=== PATIENT | female | born 1945 | race Caucasian/White ===

== ENCOUNTER 2024-01-24 11:03 | Emergency (ER) | payer MEDICARE, BC ==
[~2024-01-24] VITALS: Ht 152.4 cm; Wt 59.0 kg
[~2024-01-24 11:03] MED LIST: CYCLOBENZAPRINE10 MG PO; NORCO 5-325 TA1 EACH PO
[2024-01-24 11:37] LABS: BASO # 0.1 10*3/uL (0.0-0.1); BASO % 1.9 % (0.0-1.0); EOS # 0.3 10*3/uL (0.0-0.4); HEMATOCRIT 41.2 % (37.0-47.0); LYMPH # 3.3 10*3/uL (1.3-4.4); LYMPH % 50.8 % (27.0-41.0); MEAN CELL VOLUME 101.7 fl (81.0-99.0); MEAN CORPUSCULAR HGB 30.6 pg (27.0-31.0); MEAN CORPUSCULAR HGB CONC 30.1 g/dl (33.0-37.0); MEAN PLATELET VOLUME 9.7 fl (9.6-12.3); MONO # 1.1 10*3/uL (0.1-1.0); MONO % 16.5 % (3.0-9.0); NEUT # 1.7 10*3/uL (2.3-7.9); NEUT % 26.5 % (47.0-73.0); PLATELET COUNT AUTOMATED 340 10*3/uL (130-400); RED BLOOD COUNT 4.05 10*6/uL (4.10-5.10); RED CELL DISTRI WIDTH 13.8 % (0-14.5); WHITE BLOOD COUNT 6.4 10*3/uL (4.8-10.8)
[2024-01-24 14:57] LABS: BILIRUBIN 2+ (Negative); CLARITY Clear (Clear); COLOR Orange (Yellow); GLUCOSE Negative (Negative); KETONE Negative (Negative); LEUKO ESTERASE 2+ (Negative); NITRITE Positive (Negative)
[2024-01-24 15:19] LABS: BACTERIA 1+
[2024-01-24 15:20] LABS: BLOOD Trace-Lysed (Negative)
[2024-01-24] MEDS ORDERED: CIPRO500 MG PO (16:12)
[2024-01-24] MEDS ORDERED: Ciprofloxacin Hydrochloride 500 MG TAB PO ONE (16:15)
[2024-01-28] MEDS ORDERED: PANTOPRAZOLE SO40 MG PO (00:56)
[2024-01-28] MEDS ORDERED: BUMETANIDE1 MG PO (00:57)
[2024-01-28] MEDS ORDERED: ALLOPURINOL100 MG PO (00:57)
[2024-01-28] MEDS ORDERED: CARVEDILOL25 MG PO (00:58)
[2024-01-28] MEDS ORDERED: ENTRESTO 24 MG1 EACH PO (00:58)
[2024-01-28] MEDS ORDERED: HYDROCODONE-AC1 EACH PO (00:59)
[2024-01-28] MEDS ORDERED: MORPHINE SULFAT30 M9 PO (00:59)
[2024-01-28] MEDS ORDERED: FLUTICASONE PRO12 G2 INH (01:00)
[2024-01-28] MEDS ORDERED: Ipratropium Brom3 ML INH (01:00)
[2024-01-28] MEDS ORDERED: AZO BLADDER CO300 MG PO (01:02)
[2024-02-01] MEDS ORDERED: ELIQUIS5 M1 PO (11:18)
[2024-02-01] MEDS ORDERED: MUCUS RELIEF E600 MG PO (11:18)
[2024-02-01] MEDS ORDERED: ROPINIROLE HYDRO1 MG PO (11:18)
[2024-02-01] MEDS ORDERED: PREDNISONE10 MG PO (11:18)
[2024-02-01] MEDS ORDERED: LEVOFLOXACIN250 M2 PO (11:21)
== END 2024-01-24 16:28 | disposition home or self-care (01) ==
LOC: ED 11:03
PROVIDERS: Nurse Practitioner Family
DX: N39.0 Urinary tract infection, site not specified (principal); R07.89 Other chest pain; J44.9 Chronic obstructive pulmonary disease, unspecified; I50.9 Heart failure, unspecified; K21.9 Gastro-esophageal reflux disease without esophagitis; D64.9 Anemia, unspecified; F17.290 Nicotine dependence, other tobacco product, uncomplicated; Z88.0 Allergy status to penicillin; Z88.2 Allergy status to sulfonamides; Z88.1 Allergy status to other antibiotic agents; Z88.8 Allergy status to other drugs, medicaments and biological substances; Z98.890 Other specified postprocedural states

== ENCOUNTER 2024-03-13 09:16 | Emergency (ER) | payer MEDICARE, BC ==
[~2024-03-13] VITALS: Ht 152.4 cm; Wt 63.5 kg
[~2024-03-13 09:16] MED LIST changes: +ALDACTONE25 MG PO; +ALLOPURINOL100 MG PO; +AZO BLADDER CO300 MG PO; +BUMETANIDE1 MG PO; +CARVEDILOL25 MG PO; +CIPRO500 MG PO; +ELIQUIS5 M1 PO; +ENTRESTO 24 MG1 EACH PO; +FLUTICASONE PRO12 G2 INH; +HYDROCODONE-AC1 EACH PO; +Ipratropium Brom3 ML INH; +JARDIANCE10 MG PO; +LEVOFLOXACIN250 M2 PO; +MORPHINE SULFAT30 M9 PO; +MUCUS RELIEF E600 MG PO; +PANTOPRAZOLE SO40 MG PO; +PREDNISONE10 MG PO; +ROPINIROLE HYDRO1 MG PO
[2024-03-13] MEDS ORDERED: TRIAMCINOLONE ACETONIDE 40 MG/ML VIAL IM ONE (09:30)
== END 2024-03-13 12:55 | disposition home or self-care (01) ==
LOC: ED 09:16
DX: G89.29 Other chronic pain (principal); M54.50 Low back pain, unspecified; M19.90 Unspecified osteoarthritis, unspecified site; R91.1 Solitary pulmonary nodule; J44.9 Chronic obstructive pulmonary disease, unspecified; I50.9 Heart failure, unspecified; K21.9 Gastro-esophageal reflux disease without esophagitis; D46.9 Myelodysplastic syndrome, unspecified; Z87.442 Personal history of urinary calculi; F17.210 Nicotine dependence, cigarettes, uncomplicated; Z88.0 Allergy status to penicillin; Z88.2 Allergy status to sulfonamides; Z88.1 Allergy status to other antibiotic agents; Z88.8 Allergy status to other drugs, medicaments and biological substances; Z98.890 Other specified postprocedural states; Z96.653 Presence of artificial knee joint, bilateral

== ENCOUNTER 2024-05-03 14:25 | Observation (INO) | payer MEDICARE, BC ==
[~2024-05-03] VITALS: Ht 152.4 cm; Wt 57.7 kg
[2024-05-03] VITALS (12 sets, daily range): BP systolic 104–134; BP diastolic 45–60
[2024-05-03] MEDS ORDERED: AMITRIPTYLINE25 MG PO (14:35)
[2024-05-03] MEDS ORDERED: METOPROLOL SUCC50 M1 PO (14:36)
[2024-05-03] MEDS ORDERED: ASPIRIN ADULT L81 M2 PO (14:36)
[2024-05-03 15:02] LABS: BASO # 0.1 10*3/uL (0.0-0.1); BASO % 0.7 % (0.0-1.0); EOS % 0.1 % (1.0-4.0); HEMATOCRIT 27.4 % (37.0-47.0); MEAN CELL VOLUME 92.9 fl (81.0-99.0); MEAN CORPUSCULAR HGB 26.8 pg (27.0-31.0); MEAN CORPUSCULAR HGB CONC 28.8 g/dl (33.0-37.0); MEAN PLATELET VOLUME 9.2 fl (9.6-12.3); MONO # 0.9 10*3/uL (0.1-1.0); NEUT # 7.5 10*3/uL (2.3-7.9); NEUT % 72.3 % (47.0-73.0); NUCLEATED RED BLOOD CELL 0.3 % (0.0-0.0); PLATELET COUNT AUTOMATED 558 10*3/uL (130-400); RED BLOOD COUNT 2.95 10*6/uL (4.10-5.10); RED CELL DISTRI WIDTH 18.6 % (0-14.5); WHITE BLOOD COUNT 10.3 10*3/uL (4.8-10.8)
[2024-05-03 15:13] LABS: ACT PARTIAL THROMBO TIME 24.9 SECONDS (20.0-32.1)
[2024-05-03 15:23] LABS: ALKALINE PHOSPHATASE 273 U/L (46-116); BUN 12 mg/dl (9-23); CHLORIDE 105 mmol/L (98-107); POTASSIUM 3.9 mmol/L (3.4-5.1); SGPT/ALT < 7 U/L (5-49); TOTAL PROTEIN 5.3 gm/dL (6.0-8.0)
[2024-05-03] MEDS ORDERED: Ondansetron Hydrochloride 4 MG/2 ML VIAL IV PRN (18:00)
[2024-05-03] MEDS ORDERED: MORPHINE Sulfate 2 MG/ML SYR IV PRN (18:00)
[2024-05-03] MEDS ORDERED: MAGNESIUM SULFATE 50 ML IV ONE (18:05)
[2024-05-03] MEDS ORDERED: ACETAMINOPHEN 325 MG TAB PO PRN (18:05)
[2024-05-03] MEDS ORDERED: Albuterol Sulf/Ipratropium 3 ML VIAL NEB ONE (18:25)
[2024-05-03] MEDS ORDERED: Albuterol Sulf/Ipratropium 3 ML VIAL NEB PRN (18:25)
[2024-05-03] MEDS ORDERED: SODIUM CHLORIDE 0.9% 500 ML IV SCH (19:25)
[2024-05-03] MEDS ORDERED: SODIUM CHLORIDE 0.9% 500 ML IV ONE (19:39)
[2024-05-03] MEDS ORDERED: Amitriptyline Hydrochloride 25 MG TAB PO SCH (22:00)
[2024-05-03] MEDS ORDERED: Ropinirole Hydrochloride 1 MG TAB PO SCH (22:00)
[2024-05-03] MEDS ORDERED: Cyclobenzaprine Hydrochlorid 10 MG TAB PO SCH (22:00)
[2024-05-03] MEDS ORDERED: Acetaminophen/Hydrocodone HP 10/325 PO PRN (22:00)
[2024-05-04] VITALS: BP 125/50
[2024-05-04 04:36] LABS: BILIRUBIN Negative (Negative); BLOOD Negative (Negative); CLARITY Clear (Clear); COLOR Yellow (Yellow); GLUCOSE 3+ (Negative); KETONE Negative (Negative); LEUKO ESTERASE 2+ (Negative); NITRITE Negative (Negative); UROBILINOGEN 0.2 E.U./dl (0.0-1.0)
[2024-05-04 04:58] LABS: EPITHELIAL CELLS 16-20; YEAST 3+
[2024-05-04 04:59] LABS: WBC 41-50 wbc/hpf (0-5)
[2024-05-04 05:21] LABS: FREE T4 0.96 ng/dl (0.89-1.76)
[2024-05-04 06:05] LABS: BASO # 0.1 10*3/uL (0.0-0.1); BASO % 1.1 % (0.0-1.0); EOS # 0.1 10*3/uL (0.0-0.4); EOS % 0.8 % (1.0-4.0); MEAN CELL VOLUME 89.9 fl (81.0-99.0); MEAN CORPUSCULAR HGB 26.4 pg (27.0-31.0); MEAN CORPUSCULAR HGB CONC 29.4 g/dl (33.0-37.0); MONO % 10.4 % (3.0-9.0); NEUT # 3.5 10*3/uL (2.3-7.9); NEUT % 37.2 % (47.0-73.0); NUCLEATED RED BLOOD CELL 0.4 % (0.0-0.0); PLATELET COUNT AUTOMATED 624 10*3/uL (130-400); RED BLOOD COUNT 3.56 10*6/uL (4.10-5.10); RED CELL DISTRI WIDTH 17.8 % (0-14.5); WHITE BLOOD COUNT 9.5 10*3/uL (4.8-10.8)
[2024-05-04] MEDS ORDERED: Pantoprazole Sodium 40 MG TAB PO SCH (07:30)
[2024-05-04 08:00] VITALS: BP 138/46
[2024-05-04] MEDS ORDERED: APIXABAN 5 MG TAB PO SCH (10:00)
[2024-05-04] MEDS ORDERED: ASPIRIN ENTERIC COATED 81 MG TAB PO SCH (10:00)
[2024-05-04] MEDS ORDERED: ALLOPURINOL 100 MG TAB PO SCH (10:00)
[2024-05-04] MEDS ORDERED: METOPROLOL SUCCINATE XR 50 MG TAB PO SCH (10:00)
[2024-05-04 12:00] VITALS: BP 142/62
[2024-05-04 16:00] VITALS: BP 126/60
[2024-05-04 20:00] VITALS: BP 139/47
[2024-05-04] MEDS ORDERED: ATORVASTATIN CALCIUM 40 MG TABLET PO SCH (22:00)
[2024-05-04] MEDS ORDERED: MORPHINE Sulfate 30 MG TAB PO SCH (22:00)
[2024-05-05 00:04] VITALS: BP 141/53
[2024-05-05 06:17] LABS: BUN 13 mg/dl (9-23); CHLORIDE 106 mmol/L (98-107); CHOLESTEROL 119 mg/dL (<200); LDL CHOLESTEROL 44 mg/dL (9-159); POTASSIUM 4.8 mmol/L (3.4-5.1); TRIGLYCERIDES 125 mg/dl (<150)
[2024-05-05 06:22] LABS: BASO # 0.1 10*3/uL (0.0-0.1); BASO % 1.1 % (0.0-1.0); EOS # 0.1 10*3/uL (0.0-0.4); EOS % 0.6 % (1.0-4.0); HEMATOCRIT 29.3 % (37.0-47.0); MEAN CELL VOLUME 88.8 fl (81.0-99.0); MEAN CORPUSCULAR HGB 27.3 pg (27.0-31.0); MEAN CORPUSCULAR HGB CONC 30.7 g/dl (33.0-37.0); MEAN PLATELET VOLUME 9.2 fl (9.6-12.3); MONO # 1.1 10*3/uL (0.1-1.0); MONO % 9.7 % (3.0-9.0); NEUT # 5.2 10*3/uL (2.3-7.9); NEUT % 45.8 % (47.0-73.0); NUCLEATED RED BLOOD CELL 0.3 % (0.0-0.0); PLATELET COUNT AUTOMATED 549 10*3/uL (130-400); RED CELL DISTRI WIDTH 18.2 % (0-14.5); WHITE BLOOD COUNT 11.2 10*3/uL (4.8-10.8)
[2024-05-05 08:00] VITALS: BP 125/42
[2024-05-05] MEDS ORDERED: NA FERRIC GLUC CMPL/SUCROSE 62.5 MG/5 ML VIAL IV ONE (09:00)
[2024-05-05] MEDS ORDERED: EMPAGLIFLOZIN 10 MG TABLET PO SCH (10:00)
[2024-05-05] MEDS ORDERED: SACUBITRIL/VALSARTAN 24 MG-26 MG TABLET PO SCH (10:00)
[2024-05-05] MEDS ORDERED: GUAIFENESIN 600 MG TAB ER PO SCH (10:00)
[2024-05-05 12:00] VITALS: BP 130/51
[2024-05-05 16:00] VITALS: BP 121/50
[2024-05-05 20:00] VITALS: BP 117/39
[2024-05-06] VITALS: BP 120/41
[2024-05-06] MEDS ORDERED: CYCLOBENZAPRINE5 M3 PO (01:08)
[2024-05-06] MEDS ORDERED: ELIQUIS2.5 M1 PO (01:09)
[2024-05-06] MEDS ORDERED: ISOSORBIDE DINIT5 M2 PO (01:10)
[2024-05-06] MEDS ORDERED: AIRSUPRA 90-810.7 GM INH (01:16)
[2024-05-06 07:18] LABS: BASO # 0.1 10*3/uL (0.0-0.1); BASO % 0.9 % (0.0-1.0); EOS # 0.1 10*3/uL (0.0-0.4); EOS % 0.9 % (1.0-4.0); HEMATOCRIT 31.9 % (37.0-47.0); MEAN CELL VOLUME 91.4 fl (81.0-99.0); MEAN CORPUSCULAR HGB 26.9 pg (27.0-31.0); MEAN CORPUSCULAR HGB CONC 29.5 g/dl (33.0-37.0); MEAN PLATELET VOLUME 9.3 fl (9.6-12.3); MONO # 1.1 10*3/uL (0.1-1.0); MONO % 9.8 % (3.0-9.0); NEUT % 45.3 % (47.0-73.0); NUCLEATED RED BLOOD CELL 0.2 % (0.0-0.0); PLATELET COUNT AUTOMATED 589 10*3/uL (130-400); RED BLOOD COUNT 3.49 10*6/uL (4.10-5.10); RED CELL DISTRI WIDTH 17.9 % (0-14.5)
[2024-05-06 07:31] LABS: BUN 10 mg/dl (9-23); CHLORIDE 106 mmol/L (98-107); POTASSIUM 4.7 mmol/L (3.4-5.1)
[2024-05-06 08:00] VITALS: BP 120/58; BP 178/82
[2024-05-06] MEDS ORDERED: METOPROLOL SUCCINATE XR 50 MG TAB PO SCH (10:00)
[2024-05-06] MEDS ORDERED: FERROUS SULFATE 325 MG TAB PO SCH (10:00)
[2024-05-06] MEDS ORDERED: ATORVASTATIN CA40 M1 PO (11:34)
[2024-05-06 11:58] VITALS: BP 119/46
== END 2024-05-06 13:32 | disposition still patient (30) ==
LOC: ED 14:25 → 4E 17:30 → EDHOLD 17:30 → 4E 18:03
PROVIDERS: Emergency Medicine; Student in an Organized Health Care Education/Training Program; ADMIT Family Medicine; ATTEND Family Medicine
DX: R07.89 Other chest pain (principal); E83.42 Hypomagnesemia; E43 Unspecified severe protein-calorie malnutrition; C25.9 Malignant neoplasm of pancreas, unspecified; I50.22 Chronic systolic (congestive) heart failure; I48.0 Paroxysmal atrial fibrillation; D64.9 Anemia, unspecified; M54.50 Low back pain, unspecified; G89.29 Other chronic pain; R74.8 Abnormal levels of other serum enzymes; R73.9 Hyperglycemia, unspecified; J44.9 Chronic obstructive pulmonary disease, unspecified; N18.32 Chronic kidney disease, stage 3b; D72.829 Elevated white blood cell count, unspecified; R00.0 Tachycardia, unspecified; Z79.899 Other long term (current) drug therapy

== ENCOUNTER 2024-08-16 16:27 | Inpatient (IN) | payer OTHER ==
[~2024-08-16] VITALS: Ht 157.5 cm; Wt 53.1 kg
[2024-08-16 16:00] VITALS: BP 120/66
[~2024-08-16 16:27] MED LIST changes: +AIRSUPRA 90-810.7 GM INH; +ALDACTONE25 M1 PO; +AMITRIPTYLINE25 MG PO; +ASPIRIN ADULT L81 M2 PO; +ATORVASTATIN CA40 M1 PO; +BUMETANIDE2 MG PO; +COREG25 MG PO; +CYCLOBENZAPRINE5 M3 PO; +ELIQUIS2.5 M1 PO; +ISOSORBIDE DINIT5 M2 PO; +METOPROLOL SUCC50 M1 PO; +REQUIP2 MG PO
[2024-08-16] MEDS ORDERED: MORPHINE Sulfate 50 MG in SODIUM CHLORIDE 0.9% 45 ML IV SCH (16:35)
[2024-08-16] MEDS ORDERED: MORPHINE Sulfate 2 MG/ML SYR IV PRN (16:40)
[2024-08-16] MEDS ORDERED: diazePAM 10 MG/2 ML SYR IV PRN (16:45)
[2024-08-16] MEDS ORDERED: ATROPINE SULFATE 1% 2 ML BOTTLE SL PRN (16:45)
[2024-08-16] MEDS ORDERED: diazePAM 10 MG/2 ML SYR IV SCH (17:00)
[2024-08-16] MEDS ORDERED: SODIUM CHLORIDE 0.9% 1,000 ML IV SCH (17:10)
[2024-08-17 08:00] VITALS: BP 100/41
[2024-08-17 12:00] VITALS: BP 86/35
[2024-08-17 16:00] VITALS: BP 116/93
[2024-08-17] MEDS ORDERED: GLYCOPYRROLATE 0.4 MG/2 ML VIAL IV SCH (18:00)
[2024-08-17] MEDS ORDERED: GLYCOPYRROLATE IN WATER/PF 0.4 MG/2 ML SYRINGE IV SCH (18:00)
[2024-08-17 20:00] VITALS: BP 90/47
[2024-08-17] MEDS ORDERED: MORPHINE Sulfate 100 MG in SODIUM CHLORIDE 0.9% 90 ML IV SCH (22:00)
[2024-08-18] VITALS: BP 91/38
[2024-08-18] MEDS ORDERED: SODIUM CHLORIDE 0.9% 1,000 ML IV ONE (03:01)
[2024-08-18] MEDS ORDERED: SODIUM CHLORIDE 0.9% 1,000 ML BAG IV SCH (05:40)
[2024-08-18 08:00] VITALS: BP 94/33
[2024-08-18] MEDS ORDERED: MORPHINE Sulfate 2 MG/ML SYR IV PRN (10:12)
[2024-08-18] MEDS ORDERED: diazePAM 10 MG/2 ML SYR IV PRN (10:15)
[2024-08-18 12:00] VITALS: BP 118/82
[2024-08-18] MEDS ORDERED: MORPHINE SULFATE IV SCH (12:00)
[2024-08-18] MEDS ORDERED: SODIUM CHLORIDE 0.9% IV SCH ×2 (12:00→16:00)
[2024-08-18] MEDS ORDERED: diazePAM 10 MG/2 ML SYR IV SCH (12:15)
[2024-08-18] MEDS ORDERED: HYDROmorphone Hydrochloride 1 MG/ML SYR IV PRN (12:35)
[2024-08-18 16:00] VITALS: BP 87/38
[2024-08-18] MEDS ORDERED: HYDROMORPHONE IV SCH (16:00)
[2024-08-18 20:00] VITALS: BP 93/42
[2024-08-19] VITALS: BP 90/48
[2024-08-19 08:00] VITALS: BP 92/32
[2024-08-19] MEDS ORDERED: SODIUM CHLORIDE 0.9% 500 ML IV SCH (11:55)
[2024-08-19 12:00] VITALS: BP 87/29
[2024-08-19 16:00] VITALS: BP 103/31
[2024-08-19 20:00] VITALS: BP 54/28
[2024-08-20] VITALS: BP 117/41
[2024-08-20 08:00] VITALS: BP 94/30
[2024-08-20 12:00] VITALS: BP 98/53
== END 2024-08-20 17:22 | DRG 871 ==
LOC: 4E 16:27
PROVIDERS: ADMIT Internal Medicine; ATTEND Internal Medicine
DX: A41.89 Other specified sepsis (principal); J15.69 Pneumonia due to other Gram-negative bacteria; N17.0 Acute kidney failure with tubular necrosis; S22.060A Wedge compression fracture of T7-T8 vertebra, initial encounter for closed fracture; E44.0 Moderate protein-calorie malnutrition; Z66 Do not resuscitate; Z51.5 Encounter for palliative care; D50.0 Iron deficiency anemia secondary to blood loss (chronic); N18.9 Chronic kidney disease, unspecified; N28.89 Other specified disorders of kidney and ureter; R65.20 Severe sepsis without septic shock; R73.9 Hyperglycemia, unspecified; Y93.89 Activity, other specified; Y92.89 Other specified places as the place of occurrence of the external cause; Y99.8 Other external cause status; Z68.25 Body mass index [BMI] 25.0-25.9, adult